=== PATIENT | female | born 1990 | race African-American/Black ===

== ENCOUNTER 2017-11-20 17:23 | Observation (INO) | payer MEDICAID, OTHER ==
[~2017-11-20] VITALS: Ht 154.9 cm; Wt 57.2 kg
[2017-11-20] MEDS ORDERED: LACTATED RINGER'S 1,000 ML IV ONE (18:58)
[2017-11-20 20:33] VITALS: BP 95/51
[2017-11-20] MEDS ORDERED: PREN-153 OR (23:36)
== END 2017-11-20 20:18 | disposition home or self-care (01) | DRG 566 ==
LOC: EDBD 17:23 → ER 17:29 → LDRP 17:59 → UNDODISOB 20:18 → LDRP 20:49
PROVIDERS: ADMIT Specialist; ATTEND Specialist
DX: O26.893 Other specified pregnancy related conditions, third trimester (principal); O62.9 Abnormality of forces of labor, unspecified; M54.9 Dorsalgia, unspecified; R42 Dizziness and giddiness; R10.30 Lower abdominal pain, unspecified; Z3A.32 32 weeks gestation of pregnancy
CPT/HCPCS: 59025; 81002; 82962; 93005; 99285; G0378